=== PATIENT | female | born 1950 | race Caucasian/White ===

== ENCOUNTER 2019-10-27 17:28 | Inpatient (IN) ==
[2019-10-27] MEDS ORDERED: Naloxone 0.4 MG/ML INJ IVP PRN ×2 (20:46→21:46)
[2019-10-27] MEDS ORDERED: Ondansetron ODT 4 MG TAB.RAPDIS SL PRN (21:46)
[2019-10-27 23:04] LABS: Basophils # 0.1 K/mcL (0.0-0.2); Basophils % 0.6 %; Eosinophils # 0.4 K/mcL (0.0-0.6); Eosinophils % 3.2 %; Hematocrit 34.8 % (35.3-44.9); Hemoglobin 11.4 g/dL (11.5-15.4); Immature Granulocytes % 0.4 % (0-4); Lymphocytes # 1.7 K/mcL (0.6-4.6); Lymphocytes % 15.2 %; Mean Corpuscular HGB Conc 32.8 g/dL (31.6-35.5); Mean Corpuscular Hemoglobin 27.3 pg (28.0-33.3); Mean Corpuscular Volume 83.5 fL (83.0-100.0); Mean Platelet Volume 9.1 fL (9.4-12.4); Monocytes # 0.4 K/mcL (0.0-1.3); Monocytes % 3.1 %; Neutrophils # 8.6 K/mcL (1.6-8.9); Platelet Count 431 K/mcL (140-400); Red Blood Count 4.17 M/mcL (3.82-4.97); Red Cell Distribution Width 16.5 % (11.5-14.5); Segmented Neutrophils % 77.5 %; White Blood Count 11.1 K/mcL (4.3-11.1)
[2019-10-27 23:22] LABS: Albumin 2.8 g/dL (3.5-5.7); Albumin/Globulin Ratio 0.9 (1.1-2.2); Bilirubin,Total 0.3 mg/dL (0.3-1.0); Calcium 7.7 mg/dL (8.6-10.3); Globulin 3.2 g/dL (2.4-3.5); Potassium 2.9 mEq/L (3.5-5.1)
[2019-10-27 23:28] LABS: Troponin I 0.09 ng/mL (< 0.04)
[2019-10-27 23:37] LABS: Triiodothyronine (T3) Free 1.83 pg/mL (2.50-3.90)
[2019-10-28 00:07] LABS: Thyroid Stimulating Hormone 167.294 mcIU/mL (0.340-5.600)
[2019-10-28] MEDS ORDERED: *HR* Metoprolol 5 MG/5 ML VIAL IVP ONE (00:12)
[2019-10-28] MEDS ORDERED: Potassium Effervescent 25 MEQ TABLET.EFF PO ONE (01:10)
[2019-10-28 01:30] LABS: Bilirubin,Urine Negative (Negative); Blood,Urine Trace (Negative); Clarity,Urine Clear (Clear); Color,Urine Yellow (Yellow); Glucose,Urine (UA) 500 mg/dL (Normal); Ketones,Urine Negative (Negative); Leukocyte Esterase,Urine Negative (Negative); Nitrite,Urine Negative (Negative); PH,Urine 6.5 pH Units (5.0-8.0); Protein,Urine >=300 mg/dL (Neg-Trace); Specific Gravity,Urine 1.013 (1.010-1.025); Urobilinogen,Urine Normal (Normal)
[2019-10-28 01:32] LABS: Bacteria,Urine None Seen per hpf (None-Few); Hyaline Casts,Urine None Seen per lpf (None-Few); Squamous Epithelial Cell,Urine Many per lpf (None-Few)
[2019-10-28 01:40] LABS: Sodium, Urine 68.7 mEq/L
[2019-10-28] MEDS ORDERED: 0.9 % Sodium Chloride 1,000 ML IVC SCH (02:30)
[2019-10-28] MEDS ORDERED: *HR* Dextrose 50 % in Water (Syg) 50 ML SYRINGE IVP PRN (04:29)
[2019-10-28] MEDS ORDERED: Dextrose Gel 15 GM/37.5 ML TUBE PO PRN ×2 (04:29)
[2019-10-28] MEDS ORDERED: D5% in Water 1,000 ML IVC PRN (04:29)
[2019-10-28] MEDS: Insulin DETEMIR 100 UNIT/ML X5UNITS SQ SCH ×2 (05:35→21:32)
[2019-10-28 07:35] LABS: Potassium 3.8 mEq/L (3.5-5.1)
[2019-10-28 07:36] LABS: Calcium 8.1 mg/dL (8.6-10.3)
[2019-10-28] MEDS: amLODIPine 5 MG TABLET PO SCH ×2 (08:15→08:17)
[2019-10-28] MEDS: Insulin LISPRO 300 UNITS/3 ML VIAL SQ SCH ×3 (08:16→16:49)
[2019-10-28 08:48] LABS: Basophils # 0.1 K/mcL (0.0-0.2); Basophils % 0.4 %; Eosinophils # 0.2 K/mcL (0.0-0.6); Eosinophils % 1.9 %; Hematocrit 33.1 % (35.3-44.9); Hemoglobin 11.1 g/dL (11.5-15.4); Immature Granulocytes % 0.4 % (0-4); Lymphocytes # 1.6 K/mcL (0.6-4.6); Lymphocytes % 13.6 %; Mean Corpuscular HGB Conc 33.5 g/dL (31.6-35.5); Mean Corpuscular Hemoglobin 27.4 pg (28.0-33.3); Mean Corpuscular Volume 81.7 fL (83.0-100.0); Monocytes # 0.4 K/mcL (0.0-1.3); Monocytes % 3.4 %; Neutrophils # 9.4 K/mcL (1.6-8.9); Platelet Count 452 K/mcL (140-400); Red Blood Count 4.05 M/mcL (3.82-4.97); Red Cell Distribution Width 16.7 % (11.5-14.5); Segmented Neutrophils % 80.3 %; White Blood Count 11.7 K/mcL (4.3-11.1)
[2019-10-28 09:07] LABS: Potassium 3.7 mEq/L (3.5-5.1)
[2019-10-28 09:17] LABS: Estimated Average Glucose 177 mg/dl
[2019-10-28] MEDS ORDERED: *HR* Heparin 5,000 UNIT/ML VIAL IVP PRN ×2 (09:48)
[2019-10-28] MEDS ORDERED: cefTRIAXone 1,000 MG in 0.9 % Sodium Chloride Mini Bag 100 ML IVPB ONE (10:08)
[2019-10-28] MEDS ORDERED: Azithromycin 500 MG in 0.9 % Sodium Chloride 250 ML IVPB SCH (11:00)
[2019-10-28 11:02] LABS: Hematocrit 33.7 % (35.3-44.9); Hemoglobin 11.2 g/dL (11.5-15.4); Mean Corpuscular HGB Conc 33.2 g/dL (31.6-35.5); Mean Corpuscular Hemoglobin 27.5 pg (28.0-33.3); Mean Corpuscular Volume 82.6 fL (83.0-100.0); Mean Platelet Volume 9.1 fL (9.4-12.4); Platelet Count 430 K/mcL (140-400); Red Blood Count 4.08 M/mcL (3.82-4.97); Red Cell Distribution Width 16.7 % (11.5-14.5)
[2019-10-28 11:12] LABS: Heparin anti-factor XA UFH 0.05 IU/mL (0.30-0.70); INR 0.9; Prothrombin Time 9.8 Seconds (9.4-12.1)
[2019-10-28] MEDS: carvediloL 6.25 MG TABLET PO SCH ×2 (11:15→16:49)
[2019-10-28] MEDS: Aspirin Enteric Coated 81 MG Tablet PO SCH (11:15)
[2019-10-28] MEDS: cefTRIAXone 1,000 MG in 0.9 % Sodium Chloride Mini Bag 100 ML IVPB SCH (11:16)
[2019-10-28] MEDS: Heparin 25,000 UNIT/250 ML D5W 25,000 UNIT/250 ML IV.SOLN IVC SCH (11:17)
[2019-10-28] MEDS: Acetaminophen 325 MG TABLET PO PRN (21:31)
[2019-10-29 01:41] LABS: Hematocrit 33.1 % (35.3-44.9); Hemoglobin 11.3 g/dL (11.5-15.4); Mean Corpuscular HGB Conc 34.1 g/dL (31.6-35.5); Mean Corpuscular Hemoglobin 27.9 pg (28.0-33.3); Mean Corpuscular Volume 81.7 fL (83.0-100.0); Mean Platelet Volume 9.2 fL (9.4-12.4); Platelet Count 462 K/mcL (140-400); Red Blood Count 4.05 M/mcL (3.82-4.97); Red Cell Distribution Width 16.8 % (11.5-14.5); White Blood Count 10.3 K/mcL (4.3-11.1)
[2019-10-29 02:00] LABS: Calcium 7.8 mg/dL (8.6-10.3); Potassium 3.7 mEq/L (3.5-5.1)
[2019-10-29] MEDS ORDERED: Azithromycin 250 MG TABLET PO SCH (09:00)
[2019-10-29] MEDS: 0.9 % Sodium Chloride 1,000 ML IVC SCH ×2 (09:02→20:28)
[2019-10-29] MEDS: Acetaminophen 325 MG TABLET PO PRN ×2 (09:07→17:02)
[2019-10-29] MEDS: amLODIPine 5 MG TABLET PO SCH (09:07)
[2019-10-29] MEDS: cefTRIAXone 1,000 MG in 0.9 % Sodium Chloride Mini Bag 100 ML IVPB SCH (09:08)
[2019-10-29] MEDS: carvediloL 6.25 MG TABLET PO SCH ×2 (09:08→16:58)
[2019-10-29] MEDS: Aspirin Enteric Coated 81 MG Tablet PO SCH (09:08)
[2019-10-29] MEDS: Insulin LISPRO 300 UNITS/3 ML VIAL SQ SCH ×3 (09:09→16:59)
[2019-10-29] MEDS: Gabapentin 300 MG CAPSULE PO SCH (20:27)
[2019-10-29] MEDS: Insulin DETEMIR 100 UNIT/ML X5UNITS SQ SCH (20:28)
[2019-10-29] MEDS: Heparin 25,000 UNIT/250 ML D5W 25,000 UNIT/250 ML IV.SOLN IVC SCH (23:55)
[2019-10-30 01:58] LABS: Hematocrit 31.8 % (35.3-44.9); Hemoglobin 10.1 g/dL (11.5-15.4); Mean Corpuscular HGB Conc 31.8 g/dL (31.6-35.5); Mean Corpuscular Hemoglobin 27.2 pg (28.0-33.3); Mean Corpuscular Volume 85.5 fL (83.0-100.0); Mean Platelet Volume 9.4 fL (9.4-12.4); Platelet Count 419 K/mcL (140-400); Red Blood Count 3.72 M/mcL (3.82-4.97); Red Cell Distribution Width 17.2 % (11.5-14.5); White Blood Count 10.4 K/mcL (4.3-11.1)
[2019-10-30 02:16] LABS: Calcium 7.6 mg/dL (8.6-10.3); Potassium 4.1 mEq/L (3.5-5.1)
[2019-10-30] MEDS: Acetaminophen 325 MG TABLET PO PRN (05:18)
[2019-10-30] MEDS ORDERED: Levothyroxine 25 MCG TABLET PO ONE (07:28)
[2019-10-30] MEDS: 0.9 % Sodium Chloride 1,000 ML IVC SCH ×2 (08:01→18:12)
[2019-10-30] MEDS: *HR* Amiodarone 200 MG TABLET PO SCH (08:05)
[2019-10-30] MEDS: Gabapentin 300 MG CAPSULE PO SCH ×2 (08:05→20:46)
[2019-10-30] MEDS: amLODIPine 5 MG TABLET PO SCH (08:05)
[2019-10-30] MEDS: Aspirin Enteric Coated 81 MG Tablet PO SCH (08:05)
[2019-10-30] MEDS: carvediloL 6.25 MG TABLET PO SCH ×2 (08:06→17:52)
[2019-10-30] MEDS: cefTRIAXone 1,000 MG in 0.9 % Sodium Chloride Mini Bag 100 ML IVPB SCH (08:06)
[2019-10-30] MEDS: Insulin LISPRO 300 UNITS/3 ML VIAL SQ SCH ×3 (08:06→17:53)
[2019-10-30 09:06] LABS: Hepatitis B Surface Antibody < 3.10 mIU/mL
[2019-10-30 09:17] LABS: Hepatitis B Surface Antigen Nonreactive (Nonreactive)
[2019-10-30 09:45] LABS: Hepatitis B Core IgM Nonreactive (Nonreactive)
[2019-10-30 09:47] LABS: Complement C3 113 mg/dL (87-200)
[2019-10-30] MEDS: *HR* Heparin 5,000 UNIT/ML VIAL SQ SCH (18:12)
[2019-10-30] MEDS: Insulin DETEMIR 100 UNIT/ML X5UNITS SQ SCH (20:46)
[2019-10-31] MEDS: *HR* Heparin 5,000 UNIT/ML VIAL SQ SCH ×2 (04:36→17:35)
[2019-10-31 05:34] LABS: Creatinine,Urine 69 mg/dL; Microalbumin,Urine > 1350 mg/L; Protein/Creatinine Ratio,Urine 6.01 mg/mg (0.00-0.20)
[2019-10-31 06:45] LABS: Hematocrit 31.4 % (35.3-44.9); Mean Corpuscular HGB Conc 31.8 g/dL (31.6-35.5); Mean Corpuscular Hemoglobin 27.9 pg (28.0-33.3); Mean Corpuscular Volume 87.5 fL (83.0-100.0); Mean Platelet Volume 9.8 fL (9.4-12.4); Platelet Count 382 K/mcL (140-400); Red Blood Count 3.59 M/mcL (3.82-4.97); Red Cell Distribution Width 17.5 % (11.5-14.5); White Blood Count 10.8 K/mcL (4.3-11.1)
[2019-10-31 07:04] LABS: Calcium 8.2 mg/dL (8.6-10.3); Potassium 5.1 mEq/L (3.5-5.1)
[2019-10-31] MEDS: Aspirin Enteric Coated 81 MG Tablet PO SCH (08:01)
[2019-10-31] MEDS: amLODIPine 5 MG TABLET PO SCH (08:01)
[2019-10-31] MEDS: *HR* Amiodarone 200 MG TABLET PO SCH (08:01)
[2019-10-31] MEDS: carvediloL 6.25 MG TABLET PO SCH ×2 (08:01→17:35)
[2019-10-31] MEDS: Gabapentin 300 MG CAPSULE PO SCH ×2 (08:01→20:38)
[2019-10-31] MEDS: cefTRIAXone 1,000 MG in 0.9 % Sodium Chloride Mini Bag 100 ML IVPB SCH (08:01)
[2019-10-31] MEDS: Insulin LISPRO 300 UNITS/3 ML VIAL SQ SCH ×3 (08:02→17:36)
[2019-10-31] MEDS: Insulin DETEMIR 100 UNIT/ML X5UNITS SQ SCH (20:38)
[2019-11-01] MEDS: *HR* Heparin 5,000 UNIT/ML VIAL SQ SCH ×2 (06:10→17:00)
[2019-11-01 06:17] LABS: Urine Collection Volume RANDOM mL
[2019-11-01 07:53] LABS: ANA IgG by ELISA NONE DETECTED (None Detected); Hepatitis B Core Ab Total NEGATIVE (Negative)
[2019-11-01] MEDS: Aspirin Enteric Coated 81 MG Tablet PO SCH (08:29)
[2019-11-01] MEDS: carvediloL 6.25 MG TABLET PO SCH (08:29)
[2019-11-01] MEDS: *HR* Amiodarone 200 MG TABLET PO SCH (08:29)
[2019-11-01] MEDS: Gabapentin 300 MG CAPSULE PO SCH ×2 (08:29→21:48)
[2019-11-01] MEDS: Insulin LISPRO 300 UNITS/3 ML VIAL SQ SCH ×3 (08:30→16:13)
[2019-11-01] MEDS: amLODIPine 5 MG TABLET PO SCH (08:30)
[2019-11-01] MEDS: cefTRIAXone 1,000 MG in 0.9 % Sodium Chloride Mini Bag 100 ML IVPB SCH (08:30)
[2019-11-01 08:38] LABS: Calcium 8.2 mg/dL (8.6-10.3); Potassium 5.6 mEq/L (3.5-5.1)
[2019-11-01] MEDS ORDERED: Insulin Human Regular 10 UNIT in 0.9 % Sodium Chloride 10 ML IV ONE (15:29)
[2019-11-01] MEDS ORDERED: *HR* Dextrose 50 % in Water (Syg) 50 ML SYRINGE IVP ONE (15:29)
[2019-11-01] MEDS: Calcium Gluconate 1gm/50mL 1 GM/50 ML BAG IVPB PRN ×2 (16:02→16:03)
[2019-11-01 16:21] LABS: Calcium 8.2 mg/dL (8.6-10.3); Potassium 5.5 mEq/L (3.5-5.1)
[2019-11-01 17:25] LABS: Calcium 8.7 mg/dL (8.6-10.3); Potassium 5.1 mEq/L (3.5-5.1)
[2019-11-01] MEDS: Insulin DETEMIR 100 UNIT/ML X5UNITS SQ SCH (21:48)
[2019-11-01 23:04] LABS: Kappa Qnt Free Light Chains 15.6 mg/dL (0.33-1.94); Lambda Qnt Free Light Chains 6.87 mg/dL (0.57-2.63)
[2019-11-02 05:24] LABS: Potassium 4.5 mEq/L (3.5-5.1)
[2019-11-02] MEDS: Insulin LISPRO 300 UNITS/3 ML VIAL SQ SCH ×3 (07:29→18:19)
[2019-11-02 08:36] LABS: Serine Protease-3 Antibody 0 AU/mL (0-19)
[2019-11-02] MEDS: *HR* Heparin 5,000 UNIT/ML VIAL SQ SCH ×2 (09:09→18:13)
[2019-11-02 10:02] LABS: Alpha 2 Globulin (PEP) 0.97 g/dL (0.48-1.05); Beta Globulin (PEP) 0.67 g/dL (0.48-1.10)
[2019-11-02] MEDS ORDERED: Heparin 1,000 UNITS/500 mL 500 ML ONE (11:27)
[2019-11-02] MEDS ORDERED: 0.9 % Sodium Chloride 500 ML ONE (11:28)
[2019-11-02] MEDS ORDERED: Clindamycin 600 MG/50 ML 600 MG/50 ML IV.SOLN IVPB ONE (11:29)
[2019-11-02] MEDS ORDERED: *HR* FentaNYL (PF) 100 MCG/2 ML VIAL IVP ONE (11:29)
[2019-11-02] MEDS ORDERED: *HR* Midazolam HCl 2 MG/2 ML VIAL IVP ONE (11:29)
[2019-11-02] MEDS: Gabapentin 300 MG CAPSULE PO SCH ×2 (11:33→21:53)
[2019-11-02] MEDS: amLODIPine 5 MG TABLET PO SCH (11:33)
[2019-11-02] MEDS ORDERED: *HR* Heparin 5,000 UNIT/ML VIAL ONE (11:40)
[2019-11-02] MEDS ORDERED: *HR* Heparin 10,000 UNIT/10 ML VIAL IV PRN ×2 (13:25)
[2019-11-02] MEDS ORDERED: 0.9 % Sodium Chloride 250 ML IVC PRN (13:25)
[2019-11-02] MEDS ORDERED: 0.9 % Sodium Chloride 1,000 ML PRIME SCH (13:30)
[2019-11-02 15:07] LABS: Immunoglobulin A 161 mg/dL (68-408); Immunoglobulin G 659 mg/dL (768-1632); Immunoglobulin M 72 mg/dL (35-263)
[2019-11-02 15:08] LABS: IFE Reflexed IFE Done
[2019-11-02] MEDS: Acetaminophen 325 MG TABLET PO PRN (18:11)
[2019-11-02] MEDS: Insulin DETEMIR 100 UNIT/ML X5UNITS SQ SCH (21:53)
[2019-11-03] MEDS: *HR* Heparin 5,000 UNIT/ML VIAL SQ SCH ×2 (06:46→10:00)
[2019-11-03] MEDS: Acetaminophen 325 MG TABLET PO PRN (06:47)
[2019-11-03 07:15] LABS: Albumin 2.4 g/dL (3.5-5.7); Calcium 7.7 mg/dL (8.6-10.3); Phosphorous 6.2 mg/dL (2.7-4.5); Potassium 3.8 mEq/L (3.5-5.1)
[2019-11-03] MEDS ORDERED: 0.9 % Sodium Chloride 250 ML IVC PRN (07:37)
[2019-11-03] MEDS ORDERED: *HR* Heparin 10,000 UNIT/10 ML VIAL IV PRN ×2 (07:37)
[2019-11-03] MEDS: Insulin LISPRO 300 UNITS/3 ML VIAL SQ SCH ×3 (09:35→17:38)
[2019-11-03] MEDS: amLODIPine 5 MG TABLET PO SCH (09:35)
[2019-11-03] MEDS: Gabapentin 300 MG CAPSULE PO SCH ×2 (09:35→20:46)
[2019-11-03] MEDS: Insulin DETEMIR 100 UNIT/ML X5UNITS SQ SCH (20:46)
[2019-11-04] MEDS: Acetaminophen 325 MG TABLET PO PRN (01:56)
[2019-11-04 05:02] LABS: Hematocrit 26.8 % (35.3-44.9); Hemoglobin 8.6 g/dL (11.5-15.4); Mean Corpuscular HGB Conc 32.1 g/dL (31.6-35.5); Mean Corpuscular Hemoglobin 27.7 pg (28.0-33.3); Mean Corpuscular Volume 86.2 fL (83.0-100.0); Mean Platelet Volume 9.5 fL (9.4-12.4); Platelet Count 342 K/mcL (140-400); Red Blood Count 3.11 M/mcL (3.82-4.97); Red Cell Distribution Width 17.2 % (11.5-14.5); White Blood Count 9.7 K/mcL (4.3-11.1)
[2019-11-04 05:22] LABS: Calcium 7.5 mg/dL (8.6-10.3); Potassium 4.3 mEq/L (3.5-5.1)
[2019-11-04] MEDS: *HR* Heparin 5,000 UNIT/ML VIAL SQ SCH ×2 (06:51→17:08)
[2019-11-04] MEDS: amLODIPine 5 MG TABLET PO SCH (09:56)
[2019-11-04] MEDS: Insulin LISPRO 300 UNITS/3 ML VIAL SQ SCH ×3 (09:56→16:18)
[2019-11-04] MEDS ORDERED: *HR* LORazepam 0.5 MG TABLET PO ONE (15:49)
[2019-11-04] MEDS: Gabapentin 300 MG CAPSULE PO SCH (21:07)
[2019-11-04] MEDS: Insulin DETEMIR 100 UNIT/ML X5UNITS SQ SCH (21:08)
[2019-11-05] MEDS: *HR* Heparin 5,000 UNIT/ML VIAL SQ SCH ×2 (05:36→17:05)
[2019-11-05 07:21] LABS: Basophils # 0.1 K/mcL (0.0-0.2); Basophils % 0.5 %; Eosinophils # 0.2 K/mcL (0.0-0.6); Eosinophils % 1.5 %; Hemoglobin 9.4 g/dL (11.5-15.4); Immature Granulocytes % 0.6 % (0-4); Lymphocytes # 1.7 K/mcL (0.6-4.6); Lymphocytes % 16.4 %; Mean Corpuscular HGB Conc 32.4 g/dL (31.6-35.5); Mean Corpuscular Hemoglobin 27.2 pg (28.0-33.3); Mean Corpuscular Volume 83.8 fL (83.0-100.0); Mean Platelet Volume 9.9 fL (9.4-12.4); Monocytes # 0.7 K/mcL (0.0-1.3); Neutrophils # 7.6 K/mcL (1.6-8.9); Platelet Count 379 K/mcL (140-400); Red Blood Count 3.46 M/mcL (3.82-4.97); Red Cell Distribution Width 17.3 % (11.5-14.5); White Blood Count 10.2 K/mcL (4.3-11.1)
[2019-11-05 07:59] LABS: Calcium 8.2 mg/dL (8.6-10.3); Potassium 4.4 mEq/L (3.5-5.1)
[2019-11-05] MEDS ORDERED: *HR* Heparin 10,000 UNIT/10 ML VIAL IV PRN ×2 (08:33)
[2019-11-05] MEDS ORDERED: 0.9 % Sodium Chloride 250 ML IVC PRN (08:33)
[2019-11-05] MEDS ORDERED: 0.9 % Sodium Chloride 1,000 ML PRIME SCH (08:45)
[2019-11-05] MEDS: amLODIPine 5 MG TABLET PO SCH (08:55)
[2019-11-05] MEDS: Insulin LISPRO 300 UNITS/3 ML VIAL SQ SCH ×3 (08:56→16:22)
[2019-11-05] MEDS: Insulin DETEMIR 100 UNIT/ML X5UNITS SQ SCH (20:07)
[2019-11-05] MEDS: Gabapentin 300 MG CAPSULE PO SCH (20:07)
[2019-11-06] MEDS: *HR* Heparin 5,000 UNIT/ML VIAL SQ SCH ×2 (05:49→17:20)
[2019-11-06 06:59] LABS: Hematocrit 29.7 % (35.3-44.9); Hemoglobin 9.5 g/dL (11.5-15.4); Mean Corpuscular Hemoglobin 27.3 pg (28.0-33.3); Mean Corpuscular Volume 85.3 fL (83.0-100.0); Mean Platelet Volume 9.6 fL (9.4-12.4); Platelet Count 348 K/mcL (140-400); Red Blood Count 3.48 M/mcL (3.82-4.97); Red Cell Distribution Width 17.5 % (11.5-14.5); White Blood Count 9.8 K/mcL (4.3-11.1)
[2019-11-06 07:06] LABS: Calcium 8.5 mg/dL (8.6-10.3); Potassium 4.5 mEq/L (3.5-5.1)
[2019-11-06] MEDS: Insulin LISPRO 300 UNITS/3 ML VIAL SQ SCH ×3 (07:41→17:19)
[2019-11-06] MEDS: amLODIPine 5 MG TABLET PO SCH (07:46)
[2019-11-06] MEDS ORDERED: 0.9 % Sodium Chloride 250 ML IVC PRN (08:26)
[2019-11-06] MEDS ORDERED: *HR* Heparin 10,000 UNIT/10 ML VIAL IV PRN ×2 (08:26)
[2019-11-06 16:25] VITALS: BP 157/80
[2019-11-07 02:48] LABS: Alpha 2 Globulin (PEP) 1.13 g/dL (0.48-1.05)
[2019-11-07 09:35] LABS: IFE Reflexed NOT DONE
== END 2019-11-06 17:51 | DRG 77 ==
LOC: 2ANU → SUATTDRO 19:52
PROVIDERS: ADMIT Internal Medicine; ATTEND Internal Medicine
PROC: IRPERMA (2019-11-02 12:00)

== ENCOUNTER 2019-11-07 10:06 | Inpatient (IN) ==
[2019-11-07] MEDS ORDERED: Ondansetron 4 MG/2 ML VIAL IVP PRN (12:38)
[2019-11-07] MEDS ORDERED: Naloxone 0.4 MG/ML INJ IVP PRN (12:38)
[2019-11-07] MEDS ORDERED: *HR* FentaNYL (PF) 100 MCG/2 ML VIAL IVP PRN (13:13)
[2019-11-07 13:52] LABS: Hematocrit 24.5 % (35.3-44.9)
[2019-11-07 13:53] LABS: Hemoglobin 7.9 g/dL (11.5-15.4)
[2019-11-07 14:08] LABS: INR 0.8; Prothrombin Time 9.6 Seconds (9.4-12.1)
[2019-11-07] MEDS: *HR* Heparin 5,000 UNIT/ML VIAL SQ SCH (17:27)
[2019-11-07] MEDS: Insulin LISPRO 300 UNITS/3 ML VIAL SQ SCH (17:28)
[2019-11-07] MEDS ORDERED: 0.9 % Sodium Chloride 500 ML ONE (17:44)
[2019-11-07] MEDS: Gabapentin 300 MG CAPSULE PO SCH (20:43)
[2019-11-08] MEDS ORDERED: *HR* Metoprolol 5 MG/5 ML VIAL IVP ONE (00:49)
[2019-11-08] MEDS: Insulin LISPRO 300 UNITS/3 ML VIAL SQ SCH ×6 (00:55→17:45)
[2019-11-08 03:02] LABS: Basophils % 0.2 %; Eosinophils # 0.1 K/mcL (0.0-0.6); Eosinophils % 0.7 %; Hematocrit 28.5 % (35.3-44.9); Hemoglobin 9.2 g/dL (11.5-15.4); Immature Granulocytes % 0.6 % (0-4); Lymphocytes # 1.3 K/mcL (0.6-4.6); Lymphocytes % 10.5 %; Mean Corpuscular HGB Conc 32.3 g/dL (31.6-35.5); Mean Corpuscular Hemoglobin 28.2 pg (28.0-33.3); Mean Corpuscular Volume 87.4 fL (83.0-100.0); Monocytes # 0.7 K/mcL (0.0-1.3); Monocytes % 5.5 %; Platelet Count 174 K/mcL (140-400); Red Blood Count 3.26 M/mcL (3.82-4.97); Red Cell Distribution Width 15.8 % (11.5-14.5); Segmented Neutrophils % 82.5 %; White Blood Count 12.1 K/mcL (4.3-11.1)
[2019-11-08 03:13] LABS: Calcium 8.2 mg/dL (8.6-10.3); Potassium 4.2 mEq/L (3.5-5.1)
[2019-11-08] MEDS: *HR* Heparin 5,000 UNIT/ML VIAL SQ SCH ×2 (05:49→17:57)
[2019-11-08] MEDS ORDERED: *HR* OxyCODONE Immed Rel 5 MG TABLET PO PRN ×2 (08:29→12:13)
[2019-11-08] MEDS ORDERED: *HR* Promethazine 25 MG/ML VIAL IVP PRN ×2 (08:29→12:13)
[2019-11-08] MEDS ORDERED: *HR* HYDROmorphone (PF) 1 MG/ML SYRINGE IVP PRN ×2 (08:29→12:13)
[2019-11-08] MEDS ORDERED: *HR* Meperidine 25 MG/ML SYRINGE IVP PRN ×2 (08:29→12:13)
[2019-11-08] MEDS ORDERED: Acetaminophen IV 1,000 MG/100 ML INFUS..BTL IVPB ONE (08:29)
[2019-11-08] MEDS ORDERED: CeFAZolin Syr 2,000MG/20 ML 2,000 MG/20 ML SYRINGE IVPB ONE ×3 (08:50→12:13)
[2019-11-08] MEDS ORDERED: ceFAZolin 2,000 MG in Water for inj. (sterile) 20 ML IVP ONE ×2 (08:50→12:13)
[2019-11-08] MEDS ORDERED: *HR* FentaNYL (PF) 100 MCG/2 ML VIAL ONE (08:57)
[2019-11-08] MEDS ORDERED: *HR* Propofol 200 MG/20 ML VIAL IVP ONE (08:57)
[2019-11-08] MEDS ORDERED: *HR* Midazolam HCl 2 MG/2 ML VIAL ONE (08:57)
[2019-11-08] MEDS ORDERED: Loratadine 10 MG TABLET PO SCH (09:00)
[2019-11-08] MEDS ORDERED: *HR* Amiodarone 200 MG TABLET PO SCH (09:00)
[2019-11-08] MEDS ORDERED: amLODIPine 5 MG TABLET PO SCH (09:00)
[2019-11-08] MEDS ORDERED: Metoprolol XL (24 HR) Succ 50 MG TAB.ER.24H PO SCH (09:00)
[2019-11-08] MEDS: Gabapentin 300 MG CAPSULE PO SCH ×2 (09:04→19:32)
[2019-11-08] MEDS ORDERED: Lidocaine -MPF 2% 2 ML VIAL ONE (09:26)
[2019-11-08] MEDS ORDERED: *HR* Rocuronium Bromide 50 MG/5 ML VIAL ONE (09:26)
[2019-11-08] MEDS ORDERED: Lidocaine HCL 4 ML Topical Solution (Laryng-O-Jet Kit Sterile Pak) TP ONE (09:26)
[2019-11-08] MEDS ORDERED: Ondansetron 4 MG/2 ML VIAL ONE (09:26)
[2019-11-08] MEDS ORDERED: Ethanol\\Acetic Acid\\Na Ace\\Ben 1,000 ML IRRIG.SOLN IR ONE (09:33)
[2019-11-08] MEDS ORDERED: Acetaminophen IV 1,000 MG/100 ML INFUS..BTL ONE (09:53)
[2019-11-08] MEDS ORDERED: EPHEDrine 50 MG/ML VIAL ONE (10:23)
[2019-11-08] MEDS ORDERED: Neostigmine Methylsulfate 3 MG/3 ML SYRINGE ONE (11:00)
[2019-11-08] MEDS ORDERED: *HR* FentaNYL (PF) 100 MCG/2 ML VIAL IVP PRN (12:13)
[2019-11-08] MEDS ORDERED: Ondansetron 4 MG/2 ML VIAL IVP PRN (12:13)
[2019-11-08] MEDS ORDERED: Naloxone 0.4 MG/ML INJ IVP PRN (12:13)
[2019-11-08] MEDS ORDERED: Dextrose Gel 15 GM/37.5 ML TUBE PO PRN ×2 (14:06)
[2019-11-08] MEDS ORDERED: *HR* Dextrose 50 % in Water (Syg) 50 ML SYRINGE IVP PRN (14:06)
[2019-11-08] MEDS ORDERED: D5% in Water 1,000 ML IVC PRN (14:06)
[2019-11-08] MEDS ORDERED: Insulin LISPRO 300 UNITS/3 ML VIAL SQ SCH ×2 (17:00→18:00)
[2019-11-09 05:32] LABS: Basophils % 0.2 %; Eosinophils # 0.1 K/mcL (0.0-0.6); Eosinophils % 0.4 %; Hematocrit 21.9 % (35.3-44.9); Mean Corpuscular HGB Conc 34.7 g/dL (31.6-35.5); Mean Corpuscular Hemoglobin 28.7 pg (28.0-33.3); Mean Corpuscular Volume 82.6 fL (83.0-100.0); Mean Platelet Volume 10.7 fL (9.4-12.4); Monocytes # 0.7 K/mcL (0.0-1.3); Neutrophils # 12.4 K/mcL (1.6-8.9); Platelet Count 134 K/mcL (140-400); Red Blood Count 2.65 M/mcL (3.82-4.97); Red Cell Distribution Width 15.9 % (11.5-14.5); Segmented Neutrophils % 86.4 %; White Blood Count 14.3 K/mcL (4.3-11.1)
[2019-11-09 05:42] LABS: Hemoglobin 7.6 g/dL (11.5-15.4)
[2019-11-09] MEDS: *HR* Heparin 5,000 UNIT/ML VIAL SQ SCH ×2 (05:43→17:40)
[2019-11-09] MEDS ORDERED: 0.9 % Sodium Chloride 250 ML IVC PRN (06:25)
[2019-11-09] MEDS ORDERED: *HR* Heparin 10,000 UNIT/10 ML VIAL IV PRN (06:25)
[2019-11-09] MEDS ORDERED: 0.9 % Sodium Chloride 1,000 ML PRIME SCH (06:30)
[2019-11-09] MEDS: Insulin LISPRO 300 UNITS/3 ML VIAL SQ SCH ×3 (11:12→17:40)
[2019-11-09] MEDS ORDERED: 0.9 % Sodium Chloride 250 ML ONE (11:21)
[2019-11-09] MEDS: amLODIPine 5 MG TABLET PO SCH (11:27)
[2019-11-09] MEDS: *HR* Amiodarone 200 MG TABLET PO SCH (11:27)
[2019-11-09] MEDS: Gabapentin 300 MG CAPSULE PO SCH ×2 (11:27→20:57)
[2019-11-09] MEDS: Multivit/Ca/Min/Fe/FA 1 TAB TABLET PO SCH (11:28)
[2019-11-09] MEDS: Loratadine 10 MG TABLET PO SCH (11:28)
[2019-11-09] MEDS: Metoprolol XL (24 HR) Succ 50 MG TAB.ER.24H PO SCH (11:28)
[2019-11-09 12:09] LABS: Calcium 8.1 mg/dL (8.6-10.3); Potassium 4.1 mEq/L (3.5-5.1)
[2019-11-10 05:36] LABS: Basophils % 0.2 %; Eosinophils # 0.1 K/mcL (0.0-0.6); Eosinophils % 0.4 %; Hematocrit 22.6 % (35.3-44.9); Hemoglobin 7.4 g/dL (11.5-15.4); Immature Granulocytes % 0.5 % (0-4); Lymphocytes # 1.3 K/mcL (0.6-4.6); Lymphocytes % 11.5 %; Mean Corpuscular HGB Conc 32.7 g/dL (31.6-35.5); Mean Corpuscular Hemoglobin 28.7 pg (28.0-33.3); Mean Corpuscular Volume 87.6 fL (83.0-100.0); Mean Platelet Volume 10.7 fL (9.4-12.4); Monocytes # 0.7 K/mcL (0.0-1.3); Neutrophils # 9.3 K/mcL (1.6-8.9); Platelet Count 136 K/mcL (140-400); Red Blood Count 2.58 M/mcL (3.82-4.97); Red Cell Distribution Width 15.5 % (11.5-14.5); Segmented Neutrophils % 81.4 %; White Blood Count 11.4 K/mcL (4.3-11.1)
[2019-11-10 05:55] LABS: Calcium 7.8 mg/dL (8.6-10.3); Potassium 4.5 mEq/L (3.5-5.1)
[2019-11-10] MEDS: *HR* Heparin 5,000 UNIT/ML VIAL SQ SCH ×2 (06:21→18:15)
[2019-11-10] MEDS ORDERED: *HR* FentaNYL (PF) 100 MCG/2 ML VIAL IVP ONE (07:33)
[2019-11-10] MEDS ORDERED: *HR* Midazolam HCl 2 MG/2 ML VIAL IVP ONE (07:33)
[2019-11-10] MEDS: Insulin LISPRO 300 UNITS/3 ML VIAL SQ SCH ×3 (09:50→17:12)
[2019-11-10] MEDS: Metoprolol XL (24 HR) Succ 50 MG TAB.ER.24H PO SCH (10:19)
[2019-11-10] MEDS: Gabapentin 300 MG CAPSULE PO SCH (10:20)
[2019-11-10] MEDS: Multivit/Ca/Min/Fe/FA 1 TAB TABLET PO SCH (10:20)
[2019-11-10] MEDS: Loratadine 10 MG TABLET PO SCH (10:20)
[2019-11-10] MEDS: *HR* Amiodarone 200 MG TABLET PO SCH (10:20)
[2019-11-10] MEDS: amLODIPine 5 MG TABLET PO SCH (10:20)
[2019-11-10] MEDS ORDERED: Heparin 1,000 UNITS/500 mL 500 ML ONE (13:03)
[2019-11-10] MEDS ORDERED: *HR* Heparin 10,000 UNIT/10 ML VIAL IV ONE (13:23)
[2019-11-10] MEDS ORDERED: CeFAZolin Premix DUPLEX 2,000 MG/50 ML BAG IVPB ONE (13:43)
[2019-11-10] MEDS ORDERED: *HR* Heparin 5,000 UNIT/ML VIAL IVP ONE (13:45)
[2019-11-10] MEDS ORDERED: Haloperidol Lactate 5 MG/ML VIAL IVP PRN (14:58)
[2019-11-10] MEDS: Gabapentin 100 MG CAPSULE PO SCH ×2 (17:11→19:51)
[2019-11-11] MEDS: *HR* Heparin 5,000 UNIT/ML VIAL SQ SCH ×2 (05:31→16:39)
[2019-11-11] MEDS ORDERED: *HR* Heparin 10,000 UNIT/10 ML VIAL IV PRN (08:11)
[2019-11-11] MEDS ORDERED: 0.9 % Sodium Chloride 250 ML IVC PRN (08:11)
[2019-11-11] MEDS: Gabapentin 100 MG CAPSULE PO SCH ×3 (08:45→21:50)
[2019-11-11] MEDS: Multivit/Ca/Min/Fe/FA 1 TAB TABLET PO SCH (08:45)
[2019-11-11] MEDS: Loratadine 10 MG TABLET PO SCH (08:45)
[2019-11-11] MEDS: Insulin LISPRO 300 UNITS/3 ML VIAL SQ SCH ×3 (08:49→16:41)
[2019-11-11 13:19] LABS: Basophils % 0.2 %; Eosinophils # 0.2 K/mcL (0.0-0.6); Eosinophils % 1.9 %; Hematocrit 23.6 % (35.3-44.9); Hemoglobin 7.5 g/dL (11.5-15.4); Immature Granulocytes % 0.9 % (0-4); Lymphocytes # 1.1 K/mcL (0.6-4.6); Lymphocytes % 9.5 %; Mean Corpuscular HGB Conc 31.8 g/dL (31.6-35.5); Mean Corpuscular Hemoglobin 28.8 pg (28.0-33.3); Mean Corpuscular Volume 90.8 fL (83.0-100.0); Mean Platelet Volume 11.3 fL (9.4-12.4); Monocytes # 0.6 K/mcL (0.0-1.3); Neutrophils # 9.5 K/mcL (1.6-8.9); Platelet Count 161 K/mcL (140-400); Red Cell Distribution Width 15.8 % (11.5-14.5); Segmented Neutrophils % 82.5 %; White Blood Count 11.5 K/mcL (4.3-11.1)
[2019-11-11 13:36] LABS: Calcium 7.6 mg/dL (8.6-10.3); Potassium 4.5 mEq/L (3.5-5.1)
[2019-11-11] MEDS: amLODIPine 5 MG TABLET PO SCH (15:05)
[2019-11-11] MEDS: *HR* Amiodarone 200 MG TABLET PO SCH (15:06)
[2019-11-11] MEDS: Metoprolol XL (24 HR) Succ 50 MG TAB.ER.24H PO SCH (15:06)
[2019-11-12 04:41] LABS: Basophils % 0.2 %; Eosinophils # 0.1 K/mcL (0.0-0.6); Eosinophils % 0.9 %; Hematocrit 24.1 % (35.3-44.9); Hemoglobin 7.8 g/dL (11.5-15.4); Immature Granulocytes % 0.7 % (0-4); Lymphocytes # 1.3 K/mcL (0.6-4.6); Lymphocytes % 12.2 %; Mean Corpuscular HGB Conc 32.4 g/dL (31.6-35.5); Mean Corpuscular Hemoglobin 28.8 pg (28.0-33.3); Mean Corpuscular Volume 88.9 fL (83.0-100.0); Mean Platelet Volume 10.9 fL (9.4-12.4); Monocytes # 0.6 K/mcL (0.0-1.3); Monocytes % 5.6 %; Neutrophils # 8.5 K/mcL (1.6-8.9); Platelet Count 166 K/mcL (140-400); Red Blood Count 2.71 M/mcL (3.82-4.97); Red Cell Distribution Width 15.9 % (11.5-14.5); Segmented Neutrophils % 80.4 %; White Blood Count 10.6 K/mcL (4.3-11.1)
[2019-11-12 05:01] LABS: % Iron Saturation 4 % (15-50); BUN/Creatinine Ratio 10 (6-26); Blood Urea Nitrogen 34 mg/dL (8-23); Calcium 7.2 mg/dL (8.6-10.3); Carbon Dioxide 26 mEq/L (23-29); Chloride 99 mEq/L (98-107); Glucose 196 mg/dL (70-105); Iron 12 mcg/dL (50-170); Osmolality,Calculated 285 (280-300); Potassium 4.8 mEq/L (3.5-5.1); Sodium 131 mEq/L (136-145); Transferrin 208 mg/dL (203-362); eGFR For African Americans 17 (> 60); eGFR For Non-African Americans 14 (> 60)
[2019-11-12] MEDS: *HR* Heparin 5,000 UNIT/ML VIAL SQ SCH (05:18)
[2019-11-12 05:20] LABS: Ferritin 48 ng/mL (10-120)
[2019-11-12 05:25] LABS: Folate 9.3 ng/mL (3.0-16.0)
[2019-11-12 07:57] LABS: Alanine Aminotransferase < 3 Units/L (7-52); Albumin 2.2 g/dL (3.5-5.7); Albumin/Globulin Ratio 0.8 (1.1-2.2); Alkaline Phosphatase 82 Units/L (34-104); Aspartate Amino Transferase 24 Units/L (13-39); Bilirubin,Indirect 0.2 mg/dL (0.0-1.0); Bilirubin,Total 0.2 mg/dL (0.3-1.0); Globulin 2.7 g/dL (2.4-3.5); Total Protein 4.9 g/dL (6.4-8.9)
[2019-11-12] MEDS: Insulin LISPRO 300 UNITS/3 ML VIAL SQ SCH ×3 (08:15→17:43)
[2019-11-12] MEDS: Loratadine 10 MG TABLET PO SCH (08:17)
[2019-11-12] MEDS: *HR* Amiodarone 200 MG TABLET PO SCH (08:17)
[2019-11-12] MEDS: Gabapentin 100 MG CAPSULE PO SCH ×3 (08:17→20:39)
[2019-11-12] MEDS: Multivit/Ca/Min/Fe/FA 1 TAB TABLET PO SCH (08:17)
[2019-11-12] MEDS: amLODIPine 5 MG TABLET PO SCH (08:18)
[2019-11-12] MEDS: Metoprolol XL (24 HR) Succ 50 MG TAB.ER.24H PO SCH (08:18)
[2019-11-12] MEDS ORDERED: Iron Sucrose Complex 250 MG in 0.9 % Sodium Chloride 250 ML IVPB SCH (09:00)
[2019-11-12 17:46] LABS: Hematocrit 24.2 % (35.3-44.9); Hemoglobin 7.9 g/dL (11.5-15.4)
[2019-11-12 22:53] LABS: Hematocrit 23.6 % (35.3-44.9); Hemoglobin 7.9 g/dL (11.5-15.4)
[2019-11-13 04:48] LABS: Basophils % 0.3 %; Eosinophils # 0.2 K/mcL (0.0-0.6); Eosinophils % 1.4 %; Hematocrit 24.3 % (35.3-44.9); Hemoglobin 7.7 g/dL (11.5-15.4); Immature Granulocytes % 0.9 % (0-4); Lymphocytes # 1.3 K/mcL (0.6-4.6); Lymphocytes % 10.7 %; Mean Corpuscular HGB Conc 31.7 g/dL (31.6-35.5); Mean Corpuscular Hemoglobin 28.7 pg (28.0-33.3); Mean Corpuscular Volume 90.7 fL (83.0-100.0); Mean Platelet Volume 11.1 fL (9.4-12.4); Monocytes # 0.7 K/mcL (0.0-1.3); Monocytes % 5.7 %; Neutrophils # 9.4 K/mcL (1.6-8.9); Platelet Count 163 K/mcL (140-400); Red Blood Count 2.68 M/mcL (3.82-4.97); Red Cell Distribution Width 15.9 % (11.5-14.5); White Blood Count 11.7 K/mcL (4.3-11.1)
[2019-11-13 04:55] LABS: Calcium 7.7 mg/dL (8.6-10.3); Potassium 5.1 mEq/L (3.5-5.1)
[2019-11-13] MEDS ORDERED: 0.9 % Sodium Chloride 250 ML IVC PRN (08:23)
[2019-11-13] MEDS ORDERED: *HR* Heparin 10,000 UNIT/10 ML VIAL IV PRN (08:23)
[2019-11-13] MEDS ORDERED: 0.9 % Sodium Chloride 1,000 ML PRIME SCH (08:30)
[2019-11-13] MEDS: Insulin LISPRO 300 UNITS/3 ML VIAL SQ SCH ×3 (10:31→17:35)
[2019-11-13] MEDS: Loratadine 10 MG TABLET PO SCH (10:31)
[2019-11-13] MEDS: Gabapentin 100 MG CAPSULE PO SCH ×3 (10:32→21:50)
[2019-11-13] MEDS: Multivit/Ca/Min/Fe/FA 1 TAB TABLET PO SCH (10:32)
[2019-11-13] MEDS: *HR* Amiodarone 200 MG TABLET PO SCH (12:18)
[2019-11-13] MEDS: Metoprolol XL (24 HR) Succ 50 MG TAB.ER.24H PO SCH (14:52)
[2019-11-13] MEDS: amLODIPine 5 MG TABLET PO SCH (14:53)
[2019-11-14 07:08] LABS: Basophils % 0.3 %; Eosinophils # 0.1 K/mcL (0.0-0.6); Eosinophils % 0.5 %; Hematocrit 26.1 % (35.3-44.9); Hemoglobin 8.2 g/dL (11.5-15.4); Immature Granulocytes % 0.7 % (0-4); Lymphocytes # 0.9 K/mcL (0.6-4.6); Mean Corpuscular HGB Conc 31.4 g/dL (31.6-35.5); Mean Corpuscular Hemoglobin 28.7 pg (28.0-33.3); Mean Corpuscular Volume 91.3 fL (83.0-100.0); Mean Platelet Volume 10.7 fL (9.4-12.4); Monocytes # 0.6 K/mcL (0.0-1.3); Monocytes % 4.8 %; Neutrophils # 11.6 K/mcL (1.6-8.9); Platelet Count 189 K/mcL (140-400); Red Blood Count 2.86 M/mcL (3.82-4.97); Red Cell Distribution Width 15.4 % (11.5-14.5); Segmented Neutrophils % 86.7 %; White Blood Count 13.3 K/mcL (4.3-11.1)
[2019-11-14 07:30] LABS: Calcium 7.9 mg/dL (8.6-10.3); Potassium 4.5 mEq/L (3.5-5.1)
[2019-11-14] MEDS: Metoprolol XL (24 HR) Succ 50 MG TAB.ER.24H PO SCH (08:31)
[2019-11-14] MEDS: Insulin LISPRO 300 UNITS/3 ML VIAL SQ SCH ×3 (08:31→17:01)
[2019-11-14] MEDS: Multivit/Ca/Min/Fe/FA 1 TAB TABLET PO SCH (08:31)
[2019-11-14] MEDS: Loratadine 10 MG TABLET PO SCH (08:31)
[2019-11-14] MEDS: Gabapentin 100 MG CAPSULE PO SCH ×3 (08:32→19:42)
[2019-11-14] MEDS: *HR* Amiodarone 200 MG TABLET PO SCH (08:32)
[2019-11-14] MEDS: amLODIPine 5 MG TABLET PO SCH (08:38)
[2019-11-15] MEDS: *HR* Amiodarone 200 MG TABLET PO SCH (07:45)
[2019-11-15] MEDS: Gabapentin 100 MG CAPSULE PO SCH ×3 (07:45→20:19)
[2019-11-15] MEDS: Multivit/Ca/Min/Fe/FA 1 TAB TABLET PO SCH (07:46)
[2019-11-15] MEDS: Metoprolol XL (24 HR) Succ 50 MG TAB.ER.24H PO SCH (07:46)
[2019-11-15] MEDS: Loratadine 10 MG TABLET PO SCH (07:46)
[2019-11-15] MEDS: amLODIPine 5 MG TABLET PO SCH (07:46)
[2019-11-15] MEDS: Insulin LISPRO 300 UNITS/3 ML VIAL SQ SCH ×3 (07:47→16:28)
[2019-11-15 09:26] LABS: Basophils % 0.2 %; Eosinophils # 0.2 K/mcL (0.0-0.6); Eosinophils % 1.1 %; Hematocrit 23.2 % (35.3-44.9); Hemoglobin 7.7 g/dL (11.5-15.4); Immature Granulocytes % 0.9 % (0-4); Lymphocytes # 1.5 K/mcL (0.6-4.6); Lymphocytes % 10.7 %; Mean Corpuscular HGB Conc 33.2 g/dL (31.6-35.5); Mean Corpuscular Hemoglobin 29.3 pg (28.0-33.3); Mean Corpuscular Volume 88.2 fL (83.0-100.0); Mean Platelet Volume 10.4 fL (9.4-12.4); Monocytes # 0.7 K/mcL (0.0-1.3); Monocytes % 4.8 %; Neutrophils # 11.4 K/mcL (1.6-8.9); Platelet Count 270 K/mcL (140-400); Red Blood Count 2.63 M/mcL (3.82-4.97); Red Cell Distribution Width 15.6 % (11.5-14.5); Segmented Neutrophils % 82.3 %; White Blood Count 13.8 K/mcL (4.3-11.1)
[2019-11-15 09:46] LABS: Calcium 7.8 mg/dL (8.6-10.3); Potassium 4.8 mEq/L (3.5-5.1)
[2019-11-15] MEDS: *HR* Heparin 5,000 UNIT/ML VIAL SQ SCH (18:37)
[2019-11-16] MEDS: *HR* Heparin 5,000 UNIT/ML VIAL SQ SCH (05:51)
[2019-11-16 06:05] LABS: Basophils % 0.3 %; Eosinophils # 0.2 K/mcL (0.0-0.6); Eosinophils % 1.5 %; Hematocrit 24.4 % (35.3-44.9); Hemoglobin 7.5 g/dL (11.5-15.4); Lymphocytes # 1.4 K/mcL (0.6-4.6); Lymphocytes % 10.8 %; Mean Corpuscular HGB Conc 30.7 g/dL (31.6-35.5); Mean Platelet Volume 10.6 fL (9.4-12.4); Monocytes # 0.7 K/mcL (0.0-1.3); Monocytes % 5.6 %; Neutrophils # 10.6 K/mcL (1.6-8.9); Platelet Count 358 K/mcL (140-400); Red Blood Count 2.68 M/mcL (3.82-4.97); Red Cell Distribution Width 15.9 % (11.5-14.5); Segmented Neutrophils % 80.8 %; White Blood Count 13.1 K/mcL (4.3-11.1)
[2019-11-16 06:27] LABS: Magnesium 2.1 mg/dL (1.6-2.6); Potassium 5.5 mEq/L (3.5-5.1)
[2019-11-16] MEDS ORDERED: 0.9 % Sodium Chloride 250 ML IVC PRN (07:45)
[2019-11-16] MEDS: Multivit/Ca/Min/Fe/FA 1 TAB TABLET PO SCH (08:57)
[2019-11-16] MEDS: Gabapentin 100 MG CAPSULE PO SCH (08:57)
[2019-11-16] MEDS: Loratadine 10 MG TABLET PO SCH (08:58)
[2019-11-16] MEDS: *HR* Amiodarone 200 MG TABLET PO SCH (08:58)
[2019-11-16] MEDS: Insulin LISPRO 300 UNITS/3 ML VIAL SQ SCH ×2 (09:04→12:34)
[2019-11-16] MEDS ORDERED: *HR* Heparin 10,000 UNIT/10 ML VIAL IV PRN (09:18)
[2019-11-16 12:05] VITALS: BP 124/67
[2019-11-16] MEDS: Metoprolol XL (24 HR) Succ 50 MG TAB.ER.24H PO SCH (12:30)
[2019-11-16] MEDS: amLODIPine 5 MG TABLET PO SCH (12:30)
== END 2019-11-16 14:56 | DRG 469 ==
LOC: 2ANU 11:32 → SUATTDRO 11:32 → 2ANU 11-09 16:28
PROVIDERS: ADMIT Internal Medicine; ATTEND Pharmacist
PROC: IRPERMA (2019-11-10 12:00)

== ENCOUNTER 2019-12-08 01:14 | Observation (INO) ==
[2019-12-08] MEDS ORDERED: Ondansetron 4 MG/2 ML VIAL IVP PRN (04:30)
[2019-12-08] MEDS ORDERED: Naloxone 0.4 MG/ML INJ IVP PRN (04:30)
[2019-12-08] MEDS ORDERED: Furosemide 40 MG/4 ML VIAL IVP ONE (05:22)
[2019-12-08] MEDS ORDERED: D5% in Water 1,000 ML IVC PRN (05:49)
[2019-12-08] MEDS ORDERED: Dextrose Gel 15 GM/37.5 ML TUBE PO PRN ×2 (05:49)
[2019-12-08] MEDS ORDERED: *HR* Dextrose 50 % in Water (Syg) 50 ML SYRINGE IVP PRN (05:49)
[2019-12-08 05:53] LABS: Basophils % 0.3 %; Eosinophils % 0.3 %; Hematocrit 30.5 % (35.3-44.9); Hemoglobin 9.4 g/dL (11.5-15.4); Immature Granulocytes % 0.7 % (0-4); Lymphocytes # 0.8 K/mcL (0.6-4.6); Lymphocytes % 6.2 %; Mean Corpuscular HGB Conc 30.8 g/dL (31.6-35.5); Mean Corpuscular Hemoglobin 29.4 pg (28.0-33.3); Mean Corpuscular Volume 95.3 fL (83.0-100.0); Mean Platelet Volume 9.7 fL (9.4-12.4); Monocytes # 0.4 K/mcL (0.0-1.3); Monocytes % 2.9 %; Neutrophils # 11.3 K/mcL (1.6-8.9); Platelet Count 360 K/mcL (140-400); Red Cell Distribution Width 19.1 % (11.5-14.5); Segmented Neutrophils % 89.6 %; White Blood Count 12.7 K/mcL (4.3-11.1)
[2019-12-08] MEDS ORDERED: *HR* Heparin 5,000 UNIT/ML VIAL SQ SCH (06:00)
[2019-12-08 06:10] LABS: Calcium 8.5 mg/dL (8.6-10.3); Potassium 3.6 mEq/L (3.5-5.1)
[2019-12-08 06:49] LABS: Thyroid Stimulating Hormone 80.265 mcIU/mL (0.340-5.600)
[2019-12-08] MEDS ORDERED: *HR* Labetalol 20 MG/4 ML SYRINGE IVP PRN (07:49)
[2019-12-08 09:01] LABS: Hepatitis B Surface Antibody < 3.10 mIU/mL
[2019-12-08 09:13] LABS: Hepatitis B Surface Antigen Nonreactive (Nonreactive)
[2019-12-08] MEDS: Insulin LISPRO 300 UNITS/3 ML VIAL SQ SCH ×3 (10:02→16:12)
[2019-12-08] MEDS: *HR* Amiodarone 200 MG TABLET PO SCH (12:50)
[2019-12-08] MEDS: amLODIPine 5 MG TABLET PO SCH (12:50)
[2019-12-08] MEDS: carvediloL 6.25 MG TABLET PO SCH ×2 (12:50→16:08)
[2019-12-08] MEDS: Gabapentin 100 MG CAPSULE PO SCH ×2 (16:08→20:07)
[2019-12-08] MEDS: Acetaminophen 325 MG TABLET PO PRN (16:08)
[2019-12-08] MEDS ORDERED: Insulin LISPRO 300 UNITS/3 ML VIAL SQ SCH (21:00)
[2019-12-08] MEDS ORDERED: Gabapentin 300 MG CAPSULE PO SCH (21:00)
[2019-12-09] MEDS ORDERED: Levalbuterol Neb 1.25 MG/3 ML IH ONE (04:06)
[2019-12-09] MEDS: Acetaminophen 325 MG TABLET PO PRN ×2 (04:09→10:16)
[2019-12-09 06:04] LABS: Calcium 8.4 mg/dL (8.6-10.3); Phosphorous 3.3 mg/dL (2.7-4.5); Potassium 4.3 mEq/L (3.5-5.1)
[2019-12-09] MEDS ORDERED: 0.9 % Sodium Chloride 250 ML IVC PRN (07:49)
[2019-12-09] MEDS ORDERED: 0.9 % Sodium Chloride 1,000 ML PRIME SCH (08:00)
[2019-12-09] MEDS: Gabapentin 100 MG CAPSULE PO SCH (10:17)
[2019-12-09] MEDS: Insulin LISPRO 300 UNITS/3 ML VIAL SQ SCH (10:17)
[2019-12-09] MEDS: amLODIPine 5 MG TABLET PO SCH (10:18)
[2019-12-09] MEDS: carvediloL 6.25 MG TABLET PO SCH (10:18)
[2019-12-09] MEDS: *HR* Amiodarone 200 MG TABLET PO SCH (10:19)
[2019-12-09] MEDS ORDERED: *HR* OxyCODONE Immed Rel 5 MG TABLET PO PRN (10:39)
[2019-12-09] MEDS ORDERED: *HR* Heparin 10,000 UNIT/10 ML VIAL IV PRN (11:37)
[2019-12-09 14:13] VITALS: BP 157/79
== END 2019-12-09 14:20 ==
LOC: 2ANU → SUATTDRO 03:35
PROVIDERS: ADMIT Pharmacist; ATTEND Internal Medicine